=== PATIENT | female | born 1995 | race Caucasian/White ===

== ENCOUNTER 2016-12-19 12:12 | Emergency (ER) | payer BC ==
[~2016-12-19] VITALS: Ht 160 cm; Wt 65.8 kg
[2016-12-19 12:12] VITALS: BP_SYST 101
--- NOTE | 2016-12-19 12:12 | NUR ---
BROUGHT BACK TO BED #7 AND TRIAGED. REPORT GIVEN TO MARICEL
--- NOTE | 2016-12-19 12:51 | NUR ---
ER at bedside examining patient.
--- NOTE | 2016-12-19 12:51 | NUR ---
SLY WITH DR ECHEVERRIA FOR EXAMINATION
[2016-12-19 13:12] VITALS: BP_SYST 127
--- NOTE | 2016-12-19 13:12 | NUR ---
Patient given written and verbal discharge instructions and verbalizes understanding. ER MD discussed with patient the results and treatment provided. Patient in stable condition. ID arm band removed. Rx of BACTROBAN given. Patient educated on pain management and to follow up with PMD. Pain Scale 0/10. Opportunity for questions provided and answered.
== END 2016-12-19 13:21 | disposition home or self-care (01) ==
LOC: SED 12:12
DX: L02.31 Cutaneous abscess of buttock (principal)
CPT/HCPCS: 99283

== ENCOUNTER 2019-03-29 07:18 | Emergency (ER) | payer OTHER, BC ==
[~2019-03-29] VITALS: Ht 157.5 cm; Wt 67.6 kg
--- NOTE | 2019-03-29 07:18 | NUR ---
Patient to bed and gown. Side rails up.
[2019-03-29 07:29] VITALS: BP_SYST 102
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
--- NOTE | 2019-03-29 07:56 | NUR ---
Dr. Schaeffer at bedside for examination.
--- NOTE | 2019-03-29 08:05 | NUR ---
Patient given written and verbal discharge instructions and verbalizes understanding. ER MD discussed with patient the results and treatment provided. Patient in stable condition. ID arm band removed.Patient educated on pain management and to follow up with PMD. Pain Scale 6/10, tolerable.Opportunity for questions provided and answered. Medication side effect fact sheet provided.
[2019-03-29 08:06] VITALS: BP_SYST 102
== END 2019-03-29 08:06 | disposition home or self-care (01) ==
LOC: SED 07:18
DX: Z04.1 Encounter for examination and observation following transport accident (principal); V89.2XXA Person injured in unspecified motor-vehicle accident, traffic, initial encounter; Y93.89 Activity, other specified; Y92.89 Other specified places as the place of occurrence of the external cause; Y99.8 Other external cause status
CPT/HCPCS: 99281

== ENCOUNTER 2023-08-20 18:06 | Emergency (ER) | payer BC ==
[~2023-08-20] VITALS: Ht 157.5 cm; Wt 68.0 kg
[2023-08-20 18:10] VITALS: BP_SYST 134; PULSE 73; RESP 18; TEMP 97; O2SAT 100
[2023-08-20] MEDS: NACL 0.9% 1,000 ML IV ONE (18:50)
[2023-08-20 18:55] LABS: BASOPHILS % (AUTO) 0.5 % (0.0-2.0); EOSINOPHILS # (AUTO) 0.2 K/uL (0.0-0.4); EOSINOPHILS % (AUTO) 2.1 % (0.0-4.0); HEMATOCRIT 40.1 % (36-48); HEMOGLOBIN 13.6 g/dL (12.0-16.0); LYMPHOCYTES # (AUTO) 2.2 K/uL (1.0-5.5); LYMPHOCYTES % (AUTO) 27.5 % (20.5-51.5); MEAN CORPUSCULAR HEMOGLOBIN 31 pg (27-31); MEAN CORPUSCULAR HGB CONC 34 % (32-36); MEAN CORPUSCULAR VOLUME 90 fL (79.0-98.0); MONOCYTES # (AUTO) 0.5 K/uL (0.0-1.0); MONOCYTES % (AUTO) 5.5 % (1.7-9.3); NEUTROPHILS # (AUTO) 5.2 K/uL (1.8-7.7); NEUTROPHILS % (AUTO) 64.4 % (40.0-70.0); PLATELET COUNT (AUTO) 169 K/uL (130-430); RED BLOOD CELL COUNT(AUTO) 4.47 MIL/uL (4.2-6.2); RED CELL DISTRIBUTION WIDTH 13.4 % (9.0-15.0); WHITE BLOOD COUNT (AUTO) 8.2 K/uL (4.8-10.8)
[2023-08-20] MEDS: KETOROLAC TROMETHAMINE 30 MG VIAL IVP ONE (18:55)
[2023-08-20 19:25] LABS: SERUM HCG (QUALITATIVE) NEGATIVE (NEGATIVE)
[2023-08-20 19:31] LABS: INR 1.1 (0.8-1.2)
[2023-08-20 19:39] LABS: BILIRUBIN,URINE NEGATIVE (NEGATIVE); BLOOD, URINE 2+ (NEGATIVE); CLARITY/URINE CLEAR (CLEAR); COLOR,URINE YELLOW (YELLOW); GLUCOSE,URINE NEGATIVE (NEGATIVE); KETONES,URINE 2+ (NEGATIVE); LEUKOCYTE ESTERASE ,URINE 1+ (NEGATIVE); NITRITE, URINE NEGATIVE (NEGATIVE); PH,URINE 7.5 (5.0-8.0); PROTEIN URINE NEGATIVE (NEGATIVE); UROBILINOGEN,URINE 0.2 (0.2-1.0)
[2023-08-20 19:43] LABS: ALBUMIN 4.6 g/dL (3.4-4.8); CALCIUM 9.3 mg/dL (8.4-11.0); CREATININE 1.05 mg/dL (0.55-1.30); POTASSIUM 3.2 mmol/L (3.5-5.1); TOTAL BILIRUBIN 0.7 mg/dL (0.0-1.0); TOTAL PROTEIN, SERUM 8.1 g/dL (6.4-8.3)
[2023-08-20 20:11] LABS: RBC,URINE 0-3 /HPF (0-3)
[2023-08-20 20:12] LABS: BACTERIA,URINE FEW /HPF (None Seen)
[2023-08-20] MEDS: POTASSIUM CHLORIDE 20 MEQ/PKT PACKET PO ONE (20:12)
[2023-08-20] MEDS: ONDANSETRON HCL 4 MG/2 ML VIAL IVP ONE (21:05)
[2023-08-20] MEDS: MORPHINE 4 MG INJ. 4 MG/ML VIAL IVP ONE (21:08)
[2023-08-20] MEDS: SULFAMETHOXAZOLE/TRIMETHOPR DS 1 TABLET PO ONE (22:04)
[2023-08-20] MEDS ORDERED: DICL50TA9 PO (22:07)
[2023-08-20] MEDS ORDERED: SULF1TAB48 PO (22:07)
[2023-08-20] MEDS ORDERED: ONDA-8 TL (22:07)
== END 2023-08-20 22:28 | disposition home or self-care (01) ==
LOC: SED 18:06
DX: N39.0 Urinary tract infection, site not specified (principal); D25.9 Leiomyoma of uterus, unspecified; R10.2 Pelvic and perineal pain
CPT/HCPCS: 99285; 96374; 76830; 76857; 96375; 96361; 80053; 81001; 84703; 85025; 85610; 85730; 87086; 36415; 81025; J1885; J2405; J2270; J7030; 81000; 81015